=== PATIENT | female | born 2000 | race Caucasian/White ===

== ENCOUNTER 2020-09-24 13:57 | Inpatient (IN) | payer BC ==
[~2020-09-24] VITALS: Ht 160 cm; Wt 68.5 kg
--- NOTE | 2020-09-24 14:00 | NUR ---
CALLED DR VALDOVINOS AND DR EARL SPOKE WITH HER. SHE DIRECTS PT TO BE SEEN IN ER AND OB NURSE WILL COME TO EVALUATE.
[2020-09-24 14:10] VITALS: Ht 160 cm; Wt 68.5 kg
[2020-09-24] MEDS ORDERED: ACETAMINOPHEN500 M1 PO (14:11)
[2020-09-24] MEDS ORDERED: PRENAVITE1 TAB PO (14:11)
--- NOTE | 2020-09-24 14:27 | NUR ---
URINE SPEC COLLECTED, LABELED AT BS AND SENT TO LAB
[2020-09-24 14:30] LABS: BILIRUBIN NEGATIVE (NEGATIVE); KETONE NEGATIVE (NEGATIVE); NITRITE NEGATIVE (NEGATIVE); UROBILINOGEN NORMAL mg/dL (< 2)
[2020-09-24 14:32] LABS: BACTERIA MODERATE HPF (NONE SEEN); SQUAMOUS EPITHELIAL 0-5 HPF (0-4); WHITE CELLS - URINE 0-5 HPF (0-4)
--- NOTE | 2020-09-24 15:41 | NUR ---
OB RN AT FOR MONITORING
--- NOTE | 2020-09-24 16:20 | NUR ---
DR VALDOVINOS AT
--- NOTE | 2020-09-24 16:33 | NUR ---
FFN SPECIMEN COLLECTED BY OB NURSE/DR VALDOVINOS AND SENT TO LAB. POC: ADMIT PT FOR OBS
[2020-09-24 16:59] LABS: BASOPHILS 0.2 % (0-2); EOSINOPHILS 0.4 % (0-7); HEMATOCRIT 36.5 % (36.0-48.0); HEMOGLOBIN 12.6 g/dL (12-16); LYMPHOCYTES 9.2 % (15-50); MCH 33.2 pg (26.0-34.0); MCHC 34.7 g/dL (31.0-37.0); MCV 95.7 fL (80.0-100.0); MONOCYTES 4.8 % (2-11); NEUTROPHILS 85.4 % (40-80); PLATELET COUNT 299 10x3/uL (130-400); RBC 3.81 10x6/uL (4.00-5.40); WBC 20.5 10x3/uL (4.8-10.8)
[2020-09-24 17:09] LABS: CALC OSMOLALITY 272 mosm/kg (275-300); CALCIUM 9.4 mg/dL (8.5-10.1); CARBON DIOXIDE 24.2 mmol/L (21.0-32.0); CHLORIDE - SERUM 102 mmol/L (98-107); CREATININE - SERUM 0.8 mg/dL (0.6-1.3); GLUCOSE 92 mg/dL (74-106); POTASSIUM - SERUM 4.2 mmol/L (3.5-5.1); SODIUM 137 mmol/L (136-145); UREA NITROGEN 10 mg/dL (7-18); eGFR NON AFRICAN AMERICAN > 90 mL/min (90-120)
[2020-09-24 17:22] VITALS: BP 115/77
--- NOTE | 2020-09-24 17:33 | NUR ---
REPORT TO FARZANA LOPEZ
[2020-09-24 17:37] LABS: ALKALINE PHOSPHATASE 101 U/L (30-120); ALT (SGPT) 18 U/L (10-68); BILIRUBIN - TOTAL 0.37 mg/dL (0.2-1.3); HCG - QUANTITATIVE (MATERNAL) 15891 mIU/mL; PROTEIN - SERUM 7.2 g/dL (6.4-8.2)
[2020-09-25 14:02] LABS: BASOPHILS 0.5 % (0-2); EOSINOPHILS 0.5 % (0-7); HEMATOCRIT 33.1 % (36.0-48.0); HEMOGLOBIN 11.3 g/dL (12-16); LYMPHOCYTES 11.9 % (15-50); MCV 96.9 fL (80.0-100.0); MEAN PLATELET VOLUME 6.9 fL (7.4-10.4); MONOCYTES 8.3 % (2-11); NEUTROPHILS 78.8 % (40-80); PLATELET COUNT 246 10x3/uL (130-400); RBC 3.41 10x6/uL (4.00-5.40); RDW 13.3 % (11.5-14.5); WBC 16.9 10x3/uL (4.8-10.8)
[2020-09-25 14:22] LABS: ALBUMIN 2.6 g/dL (3.4-5.0); ALKALINE PHOSPHATASE 92 U/L (30-120); ALT (SGPT) 14 U/L (10-68); AMYLASE - SERUM 47 U/L (25-115); BILIRUBIN - TOTAL 0.43 mg/dL (0.2-1.3); CALC OSMOLALITY 274 mosm/kg (275-300); CALCIUM 8.1 mg/dL (8.5-10.1); CARBON DIOXIDE 21.4 mmol/L (21.0-32.0); CHLORIDE - SERUM 107 mmol/L (98-107); CREATININE - SERUM 0.9 mg/dL (0.6-1.3); GLUCOSE 76 mg/dL (74-106); LIPASE 77 U/L (73-393); POTASSIUM - SERUM 3.6 mmol/L (3.5-5.1); PROTEIN - SERUM 5.9 g/dL (6.4-8.2); SODIUM 139 mmol/L (136-145); UREA NITROGEN 8 mg/dL (7-18); eGFR NON AFRICAN AMERICAN 85 mL/min (90-120)
--- NOTE | 2020-09-25 14:30 | NUR ---
PT PAIN ASSESSED. PT DENIES PAIN NAUSEA AND DISCOMFORT AT THIS TIME.
--- NOTE | 2020-09-25 15:11 | NUR ---
0770 DR HUMPHREYS PAGED, RETURNED CALL AT THIS TIME. RN TO DISCUSS LAB AND ULTRASOUND RESULTS WITH MD. MD STATES THAT HE HAS REVIEWED THE PTS LABS, IMAGING AND STRIP AND THAT HE WILL ROUND ON PT LATER THIS AFTERNOON. MD INSTRUCTED RN TO CONTINUE PIV FLUIDS, CONTINUE REGULAR DIET FOR PATIENT, AND TO CONTINUE Q SHIFT NST. RN VERBALIZES UNDERSTANDING AT THIS TIME. NO FURTHER DIRECTIONS OR ORDERS GIVEN AT THIS TIME.
--- NOTE | 2020-09-25 17:55 | NUR ---
1739: PT AWAKE, RESTING IN BED. ANTIBIOTICS STARTED PER ORDER. PT DENIES PAIN AND RATES PAIN A 0/10 ON NUMERIC SCALE. PT DENIES QUESTIONS, NEEDS OR CONCERNS.
[2020-09-25 19:36] VITALS: BP 108/56
--- NOTE | 2020-09-25 19:36 | NUR ---
PT RESTING A,A,OX4. VSS. SEE FULL ASSESSMENT PER FLOWSHEET. PIV IN RT AC. NS INFUSING AT 75 MLS/HR. PT DENIES PAIN. SRUPX2. CALL LIGHT WITHIN REACH. PT DENIES NEEDS AT THIS TIME.
--- NOTE | 2020-09-25 20:02 | NUR ---
PIV SALINE LOCKED. TOWELS,SOAP,TOOTHBRUSH AND PASTE PROVIDED. PT UP TO SHOWER.
--- NOTE | 2020-09-25 21:15 | NUR ---
DR HUMPHREYS AT BEDSIDE DISCUSSING POC. ORDER RECEIVED TO INCREASE NS INFUSION TO 125ML/HR.
--- NOTE | 2020-09-25 22:15 | NUR ---
PT RESTING. DENIES NEED FOR PAIN MEDICATION AT THIS TIME.
--- NOTE | 2020-09-26 06:08 | NUR ---
ROCEPHIN INITIATED. PT REQUESTS TYLENOL FOR MILD BACK PAIN.
--- NOTE | 2020-09-26 06:15 | NUR ---
TYLENOL ADMINISTERED PER EMAR. ICE WATER PROVIDED. PT DENIES OTHER NEEDS AT THIS TIME.
[2020-09-26 08:04] VITALS: BP 109/58
[2020-09-26 10:25] LABS: BASOPHILS 0.7 % (0-2); EOSINOPHILS 1.3 % (0-7); HEMATOCRIT 29.8 % (36.0-48.0); HEMOGLOBIN 10.2 g/dL (12-16); LYMPHOCYTES 17.6 % (15-50); MCH 32.8 pg (26.0-34.0); MCHC 34.1 g/dL (31.0-37.0); MCV 96.3 fL (80.0-100.0); MONOCYTES 8.4 % (2-11); PLATELET COUNT 271 10x3/uL (130-400); RDW 12.9 % (11.5-14.5)
[2020-09-26 10:27] LABS: WBC 11.4 10x3/uL (4.8-10.8)
[2020-09-26 10:58] LABS: ALBUMIN 2.3 g/dL (3.4-5.0); ALKALINE PHOSPHATASE 84 U/L (30-120); BILIRUBIN - TOTAL 0.32 mg/dL (0.2-1.3); CALC OSMOLALITY 274 mosm/kg (275-300); CALCIUM 8.3 mg/dL (8.5-10.1); CARBON DIOXIDE 21.6 mmol/L (21.0-32.0); CHLORIDE - SERUM 107 mmol/L (98-107); GLUCOSE 79 mg/dL (74-106); POTASSIUM - SERUM 3.2 mmol/L (3.5-5.1); PROTEIN - SERUM 5.8 g/dL (6.4-8.2); SODIUM 139 mmol/L (136-145); UREA NITROGEN 8 mg/dL (7-18)
[2020-09-26 11:01] LABS: ALT (SGPT) 20 U/L (10-68); CREATININE - SERUM 0.6 mg/dL (0.6-1.3); eGFR NON AFRICAN AMERICAN > 90 mL/min (90-120)
[2020-09-26] MEDS ORDERED: AUGMENTIN 875-11 TAB PO (11:10)
[2020-09-26] MEDS ORDERED: HYDROCODON-ACE1 EAC7 PO (11:10)
--- NOTE | 2020-09-26 11:30 | NUR ---
PATIENT GIVEN COPY OF DISCHARGE INSTRUCTIONS INCLUDING PRESCRIPTIONS. PIV REMOVED USING ASEPTIC TECHNIQUE. PATIENT AND SIGNFICANT OTHER DENY QUESTIONS OR CONCERNS WITH THE INFORMATION PROVIDED. DISCHARGING HOME IN STABLE CONDITION AT THIS TIME.
== END 2020-09-26 11:35 | disposition home or self-care (01) | DRG 832 ==
LOC: D.ER 13:57 → D.LD 16:41
PROVIDERS: Emergency Medicine; Obstetrics & Gynecology; ADMIT Student in an Organized Health Care Education/Training Program; ATTEND Student in an Organized Health Care Education/Training Program
DX: O23.03 Infections of kidney in pregnancy, third trimester (principal); N13.6 Pyonephrosis; O23.43 Unspecified infection of urinary tract in pregnancy, third trimester; Z3A.29 29 weeks gestation of pregnancy

== ENCOUNTER 2020-10-18 17:32 | Outpatient (CLI) | payer BC ==
[2020-09-24 14:10] VITALS: BMI 26.8
[~2020-10-18 17:32] MED LIST: ACETAMINOPHEN500 M1 PO; AUGMENTIN 875-11 TAB PO; HYDROCODON-ACE1 EAC7 PO; PRENAVITE1 TAB PO
== END 2020-10-18 19:23 | disposition home or self-care (01) ==
LOC: D.LDO 17:32
PROVIDERS: ATTEND Obstetrics & Gynecology
DX: O36.8190 Decreased fetal movements, unspecified trimester, not applicable or unspecified (principal); Z3A.00 Weeks of gestation of pregnancy not specified